=== PATIENT | female | born 1980 | race Caucasian/White ===

== ENCOUNTER → 2020-10-08 | Outpatient (CLI) | payer OTHER ==
[~2020-10-08] MED LIST: OLMESARTAN-HCT1 EAC2 PO; PHENTERMINE H37.5 MG PO; PROAIR HFA8.5 GM INH; TUMS ULTRA400 MG PO; TYLENOL ARTHRI650 MG PO; ZYRTEC10 M5 PO
== END ==
LOC: LAB 14:30
PROVIDERS: ATTEND Student in an Organized Health Care Education/Training Program
DX: U07.1 COVID-19 (principal)

== ENCOUNTER 2020-11-11 12:19 | Day surgery (SDC) | payer OTHER ==
[~2020-11-11] VITALS: Ht 152.4 cm; Wt 81.6 kg
[2020-11-11 13:18] VITALS: BP 108/63
[2020-11-11 17:54] VITALS: BP 108/63
--- NOTE | 2020-11-16 07:26 | O ---
[facility] [place] [address] OPERATIVE REPORT Name: SHREYA ESTEVEZ Room #: DEP [facility] M..#: [id number] Admission: 11/11/20 Attend Phys: Oswaldo Herrera MD Discharge: 11/11/20 Date of : 82 Report #: [id number] THIS REPORT FOR: cc: HOWARD RODRIGUEZ MD, OSSAMA MD McCabe,Oswaldo Muhammad MD ~ DATE OF SERVICE: 11/11/2020 SERVICE: Orthopedics. FACILITY: [facility]. SURGEON: Oswaldo Herrera MD STRAW HAT MACHINE OPERATOR: Kalina Chew NP INDICATION FOR STRAW HAT MACHINE OPERATOR: Extremity positioning, suture management, arthroscope management, assistance with repair. PREOPERATIVE DIAGNOSES: 1. Left hip pain. 2. Left hip femoroacetabular impingement. 3. Left hip labral tear. 4. Left hip trochanteric bursitis. POSTOPERATIVE DIAGNOSES: 1. Left hip pain. 2. Left hip femoroacetabular impingement. 3. Left hip labral tear. 4. Left hip trochanteric bursitis. COMPLICATIONS: None. DRAINS: None. SPECIMENS: None. ANESTHESIA: General with regional. FINDINGS: 1. Intact articular cartilage with partial-thickness anterior chondral labral separation consistent with labral tear with more peripheral chondral wave sign, treated with Nithin CinchLock suture anchor x 2. 2. 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 [facility] [place] [address] OPERATIVE REPORT Name: SHREYA ESTEVEZ Room #: DEP [facility] M.R.#: [id number] Admission: 11/11/20 Attend Phys: Oswaldo Herrera MD Discharge: 11/11/20 Date of : 82 Report #: [id number] 3. Capsular repair with #2 Vicryl x 4. 4. Subspine decompression required for subspine impingement. Additional capsular dissection and bony work was performed. 5. Trochanteric bursectomy. PROCEDURES: 1. Left hip arthroscopic labral repair. 2. Left hip arthroscopic Cam osteochondroplasty. 3. Left hip arthroscopic subspine decompression. 4. Left hip arthroscopic trochanteric bursectomy. HISTORY AND INDICATIONS: The patient is a 40-year-old female with a history of persistent progressive left hip pain over many years. This had gotten particularly worse over the past year or so. She had imaging consistent with femoroacetabular impingement with alpha angle of approximately 60-65 degrees, prominent anterior inferior iliac spine causing a crossover sign, and the identified source of the extraarticular component of her hip impingement as well as Tonnis grade is 0 and closed growth plates. She had an MRI, which showed an anterior labral tear. She had tried rest, activity modifications, physical therapy, oral medicines and injections, all without sufficient relief. She did have positive pain response with the intraarticular injection, but had insufficient sustained pain relief. Having failed conservative measures, she was indicated for surgical treatment after risks, benefits, alternatives and indications for surgery were discussed with her in detail. The risks include but not limited to pain, bleeding, infection, injury nerves or blood vessels, persistent pain despite surgical intervention, failure of any repairs, reconstructions, progression of preexisting chondral injury, stiffness, need for further surgery as well as complications related to anesthesia such as stroke, heart attack, pulmonary complications, thromboembolic disease, and . Plans were made for left hip arthroscopy, and she gave full informed consent. PROCEDURE IN DETAIL: After left lower extremity was correctly identified in the preoperative holding area as the operative extremity, the patient underwent regional nerve block. She was then taken to the operating room where general anesthesia was induced without complications. She was padded appropriately. Prophylactic antibiotics were administered at appropriate time. C-arm was used to identify the extended Cam deformity, which extended from the 10-degree position to the 70-degree position and had a maximal alpha angle of about 65 degrees. The left hip was then prepped and draped in standard sterile fashion. Time-out procedure was performed. Traction was applied to the left leg and then a standard anterolateral viewing portal was established under fluoroscopy and then an anteromedial portal was established under arthroscopic and fluoroscopic visualization. There was erythema and synovitis present, which will be the indication for continuous passive motion machine usage postoperatively in order to reduce the risk of scarring and adhesions as these can be reasons for [address] [address] OPERATIVE REPORT Name: SHREYA ESTEVEZ Room #: DEP [facility] M.R.#: [id number] Admission: 11/11/20 Attend Phys: Oswaldo Herrera MD Discharge: 11/11/20 Date of : 82 Report #: [id number] reoperation in this patient population. Transverse capsulotomy was then completed. A shaver was used to perform a limited synovectomy and then debrided the capsule off the dorsal side of the labrum allowing access to the acetabulum and the subspine region. There was a prominent anterior-inferior iliac spine directly adjacent to the labrum anteriorly where there was some contusion of the labrum and where chondral wave sign was present that was identified arthroscopically. The cautery and shaver were used to dissect the subspine region with an effort to preserve as much capsule as possible and then the bur was used to perform a subspine decompression in standard fashion, recessing the subspine region proximal to the acetabular rim. The bur was then used to gently decorticate the acetabular rim to create a fresh bleeding surface for labral refixation and then the labrum was repaired with Nithin CinchLock suture anchor x 2. At this point, the labrum and cartilage were probed and found to be stable, and adequate repair was felt to be achieved at this point. Traction was let down. Hip was flexed up. Attention was turned towards the peripheral compartment. The transverse capsulotomy was extended down the neck in a T fashion to allow access to the entire Cam deformity and then the bur was used to perform a Cam osteoplasty in a standard fashion. I removed the instruments, brought C-arm in, and identified some additional bone distally that needed to be resected. I then placed the instruments back into the hip, completed the Cam osteoplasty, and then lavaged the bony debris out of the hip. The instruments were removed. C-arm was brought in. Final assessment was performed to confirm adequate osteoplasty and then instruments were placed back into the hip. Final photographs were taken, and the T-shaped capsulotomy was closed with a total of four #2 Vicryl sutures. Scope was then reoriented into the peritrochanteric space, and under fluoroscopy, we established a third portal and then a shaver and cautery were used to perform endoscopic trochanteric bursectomy. The vastus ridge was identified as was the proximal aspect of the vastus lateralis and then the effusion was drained. The instruments were removed. Portal sites were closed. Sterile dressing was applied. The patient was awakened from anesthesia and taken to recovery room in stable condition. No complications. All counts were correct. <ELECTRONICALLY SIGNED> By: Oswaldo Herrera MD 11/16/20 0726 [id number] Oswaldo Herrera MD /nt
== END 2020-11-11 18:45 | disposition home or self-care (01) ==
LOC: OR 12:19 → TBA 13:16 → OR 14:24
PROVIDERS: ATTEND Orthopaedic Surgery Sports Medicine
DX: M25.552 Pain in left hip (principal); M25.852 Other specified joint disorders, left hip; M70.62 Trochanteric bursitis, left hip; S73.102A Unspecified sprain of left hip, initial encounter; I10 Essential (primary) hypertension; F32.9 Major depressive disorder, single episode, unspecified; J45.909 Unspecified asthma, uncomplicated; K21.9 Gastro-esophageal reflux disease without esophagitis; Z98.890 Other specified postprocedural states; Z79.899 Other long term (current) drug therapy; Z90.49 Acquired absence of other specified parts of digestive tract; Z98.51 Tubal ligation status; Z87.891 Personal history of nicotine dependence; X58.XXXA Exposure to other specified factors, initial encounter; Y93.89 Activity, other specified; Y92.89 Other specified places as the place of occurrence of the external cause; Y99.8 Other external cause status
CPT/HCPCS: 50010; 50101; 50386; 51320; 51538; 52304; 56524; 56527; 56528; 57092; 57103; 58273; 58274; 62110; 62900; 70005